=== PATIENT | male | born 1950 | race Caucasian/White ===

== ENCOUNTER → 2018-01-24 | Outpatient (CLI) | payer BC ==
[2018-01-24 10:20] LABS: HEMOGLOBIN 12.2 g/dl (13.5-18.0); MEAN CELL VOLUME 98 fl (80.0-100.0); MEAN CORPUSCULAR HEMOGLOBIN 33 pg (27.0-31.0); MEAN CORPUSCULAR HGB CONC 33 g/dl (33.0-37.0); MEAN PLATELET VOLUME 9.2 fl (7.4-10.4); PLATELET COUNT 203 K/mm3 (130-400); RED BLOOD COUNT 3.75 M/mm3 (4.20-5.60); REDCELL DISTRIBUTION WIDTH-CV 13.9 % (11.5-14.5)
[2018-01-24 10:29] LABS: CREATININE, serum 1.1 mg/dL (0.66-1.25); POTASSIUM 4.4 mmol/L (3.4-5.0)
[2018-01-24 10:30] LABS: HEMATOCRIT 36.9 % (42.0-52.0)
[2018-01-24 11:15] LABS: BAND 4 % (0-10); LYMPHOCYTE 91 % (20.0-51.0); NEUTROPHILS 3 % (42.0-75.2); PLATELET ESTIMATE NORMAL (NORMAL)
[2018-01-27 08:58] LABS: PATHOLOGY DIFF REVIEW OK +
== END ==
LOC: COL.RAD 09:24
PROVIDERS: Physician Assistant
DX: R05 Cough (principal); R50.9 Fever, unspecified; Z85.6 Personal history of leukemia